=== PATIENT | male | born 1965 | race Caucasian/White ===

== ENCOUNTER → 2021-01-26 | Outpatient (CLI) | payer OTHER ==
--- NOTE | 2021-01-26 10:08 | RAD ---
INDICATION: Reason: LT LEG PAIN, ANTERIOR CALF RASH, R/O ABSCESS / Spl. Instructions: / History: COMPARISON: None. FINDINGS: Focused ultrasound images are obtained of the left leg. Edema of the soft tissues of the left anterior calf without a drainable fluid collection seen IMPRESSION: * Edema of the soft tissues without drainable fluid collection. Electronically signed by: Jonathan Hernandez MD (01/26/2021 10:05 AM) [email or web address]
--- NOTE | 2021-01-26 10:10 | RAD ---
INDICATION: Reason: LT LEG PAIN / Spl. Instructions: / History: COMPARISON: None. TECHNIQUE: Grayscale, color and doppler ultrasound images were obtained of the left lower extremity v enous vasculature. LEFT: No thrombus identified in the common femoral vein, femoral vein, popliteal vein or visualized calf ve ins. Portions of the calf veins are not well seen. IMPRESSION: * No thrombus identified in deep venous system of the left lower extremity. Electronically signed by: Jonathan Hernandez MD (01/26/2021 10:08 AM) [email or web address]
== END ==
LOC: US 09:16
PROVIDERS: ATTEND Family Medicine
DX: M79.89 Other specified soft tissue disorders (principal); M79.605 Pain in left leg
CPT/HCPCS: 76881; 93971